=== PATIENT | female | born 1950 | race Caucasian/White ===

== ENCOUNTER → 2023-08-14 | Day surgery (SDC) | payer MEDICARE ==
[2023-08-10 11:45] LABS: BASOPHILS # (AUTO) 0.1 (0.0-0.1); BASOPHILS % 0.5 % (0.0-1.0); EOSINOPHILS # (AUTO) 0.4 (0.0-0.4); EOSINOPHILS % 3.1 % (0.0-6.0); HEMATOCRIT 35.9 % (34.2-44.1); HEMOGLOBIN 11.9 g/dL (12.0-16.0); LYMPHOCYTES % 16.5 % (18.0-39.1); MEAN CORPUSCULAR HGB CONC 33.1 g/dL (31-35); MEAN CORPUSCULAR VOLUME 93.5 fL (81-99); MONOCYTES % 8.3 % (4.4-11.3); NEUTROPHILS # (AUTO) 8.6 (2.1-6.9); NEUTROPHILS % 71.3 % (38.7-80.0); PLATELET COUNT 340 x10e3/uL (140-360); RED BLOOD COUNT 3.84 x10e6/uL (3.6-5.1); RED CELL DISTRIBUTION WIDTH 13.3 % (11.7-14.4); WHITE BLOOD COUNT 12.09 x10e3/uL (4.8-10.8)
[2023-08-10 12:06] LABS: ALBUMIN 3.7 g/dL (3.5-5.0); ANION GAP 13.3 mmol/L (8-16); BILIRUBIN,TOTAL 0.4 mg/dL (0.2-1.2); CALCIUM 9.6 mg/dL (8.4-10.2); CREATININE, SERUM 0.66 mg/dL (0.57-1.11); POTASSIUM 4.3 mmol/L (3.5-5.1); TOTAL PROTEIN 7.4 g/dL (6.5-8.1)
[~2023-08-14] MED LIST: ACETAMINOPHEN 1000 MG/100 ML 100 ML IV ONE; ACIPHEX20 MG PO; ATENOLOL50 MG PO; CENTRUM SILVER1 EAC8 PO; CLARITIN-D 241 EACH PO; DEXAMETHASONE SOD PHOS 10 MG/1 ML VIAL ONE; DEXAMETHASONE SOD PHOS INJ 4 MG/ML SDV ONE; DICYCLOMINE HCL20 MG PO; EPHEDRINE SULFATE INJ 50 MG/ML VIAL ONE; EXCEDRIN EXTRA1 EAC1 PO; FENTANYL CITRATE/PF 100MCG/2 ML INJ ONE; GI COCKTAIL PO; GLUCOS PO; HYDROCODON-ACE1 EAC9 PO; LIDOCAINE HCL 2% LOCAL INJ 5 ML SDV VIAL INJ ONE; LYRICA150 MG PO; ONDANSETRON HCL INJ 2MG/ML 2ML 2 MG/ML VIAL ONE; PHENYLEPHRINE HCL 1% 10 MG/ML VIAL ONE; PROPOFOL IV EMULSION 10 MG/ML 20 ML VIAL ONE; ROCURONIUM BROMIDE 10 MG/ML 5ML VIAL IV ONE; ROPIVACAINE 0.5% 5 MG/ML 30 ML SDV ONE; ROPIVACAINE 246.25 MG, EPINEPHRINE HCL 1:1000 1ML 0.5 MG, CLONIDINE HCL 0.08 MG, KETORO... INJ ONE; SEVOFLURANE INHAL SOLN 250 ML PEN BTL ONE; SODIUM CHLORIDE 0.9% 500ML 500 ML ONE; SUCRALFATE1 GM PO; TIZANIDINE HCL4 MG PO; TRANEXAMIC ACID 10 ML ONE; TRANEXAMIC ACID 20 ML ONE; VITAMIN C500 MG PO; VITAMIN D325 MCG PO; Vancomycin IV 1 GM VIAL ONE; Vancomycin IV 500 MG ONE; [UNRECOGNIZED DRUG - OTHER] PO
[2023-08-14] MEDS: LACTATED RINGER'S 1,000 ML ONE (07:07)
[2023-08-14] MEDS: CEFAZOLIN SODIUM 2 GM ONE (07:07)
[2023-08-14] MEDS: MIDAZOLAM HCL 2 MG/2 ML VIAL ONE (07:18)
[2023-08-14 12:17] VITALS: BP 149/70; PULSE 73; RESP 18; O2SAT 98
== END | disposition home or self-care (01) ==
LOC: OR 06:03
PROVIDERS: ATTEND Orthopaedic Surgery
DX: S42.292A Other displaced fracture of upper end of left humerus, initial encounter for closed fracture (principal); I10 Essential (primary) hypertension; E78.5 Hyperlipidemia, unspecified; K21.9 Gastro-esophageal reflux disease without esophagitis; F17.200 Nicotine dependence, unspecified, uncomplicated; K28.9 Gastrojejunal ulcer, unspecified as acute or chronic, without hemorrhage or perforation; K44.9 Diaphragmatic hernia without obstruction or gangrene; K57.90 Diverticulosis of intestine, part unspecified, without perforation or abscess without bleeding; W19.XXXA Unspecified fall, initial encounter; Y92.009 Unspecified place in unspecified non-institutional (private) residence as the place of occurrence of the external cause; Z88.6 Allergy status to analgesic agent; Z88.0 Allergy status to penicillin; Z88.8 Allergy status to other drugs, medicaments and biological substances; Z01.810 Encounter for preprocedural cardiovascular examination; Z01.812 Encounter for preprocedural laboratory examination; Z01.818 Encounter for other preprocedural examination; Z79.899 Other long term (current) drug therapy
CPT/HCPCS: 23472; 36415; 71046; 73030; 76000; 80053; 85025; 93005; C1713 ×3; C1776; J0131; J0171; J1100 ×2; J2001; J2250; J2371; J2405; J2704; J2795; J3010; J3370 ×2; J7040; J7121; J1885